=== PATIENT | male | born 1980 | race Caucasian/White ===

== ENCOUNTER 2024-09-03 12:54 | Emergency (ER) | payer MEDICAID ==
[~2024-09-03] VITALS: Ht 162.6 cm; Wt 88.6 kg
[2024-09-03 13:01] VITALS: TEMP 97.9
[2024-09-03] MEDS: LIDOCAINE 1% 10 ML VIAL SQ ONE (14:00)
[2024-09-03] MEDS ORDERED: CEPH-558 PO (16:48)
[2024-09-03 16:54] VITALS: BP 122/78; PULSE 68; RESP 18; O2SAT 98
[2024-09-03] MEDS: PERTUSS(ACELL),DIPH,TET/PF 0.5 ML SYRINGE [ADULT] IM. ONE (16:59)
== END 2024-09-03 17:08 | disposition home or self-care (01) ==
LOC: EMS 13:01
DX: S61.411A Laceration without foreign body of right hand, initial encounter (principal); W26.8XXA Contact with other sharp object(s), not elsewhere classified, initial encounter; Y93.89 Activity, other specified; Y92.89 Other specified places as the place of occurrence of the external cause; Y99.8 Other external cause status
CPT/HCPCS: 99283; 90715; 90471; 12002; J3490